=== PATIENT | male | born 1985 | race Caucasian/White ===

== ENCOUNTER 2023-12-13 12:36 | Emergency (ER) | payer SELFPAY ==
[~2023-12-13] VITALS: Ht 167.6 cm; Wt 86.0 kg
[2023-12-13 12:59] VITALS: O2SAT 99
[2023-12-13 13:49] LABS: BASOPHILS % 0.3 % (0.0-2.0); EOSINOPHILS % 0.7 % (0.0-5.0); HEMATOCRIT. 48.6 % (42.0-52.0); HEMOGLOBIN. 16.3 g/dL (14.0-18.0); LYMPHOCYTES % 18.5 % (20.0-50.0); MEAN CORPUSCULAR HEMOGLOBIN 28.2 pg (28.0-32.0); MEAN CORPUSCULAR HGB CONC 33.4 g/dL (31.0-37.0); MEAN CORPUSCULAR VOLUME 84.4 fL (80.0-94.0); MONOCYTES % 7.4 % (2.0-8.0); NEUTROPHILS % 73.1 % (40.0-76.0); PLATELET 267 x1000/uL (130-400); RED BLOOD CELL COUNT 5.76 mill/uL (4.7-6.1); RED CELL DISTRIBUTION WIDTH 13.7 % (11.6-14.6); WHITE BLOOD COUNT 13.9 x1000/uL (4.5-11.0)
[2023-12-13 13:52] LABS: CHLORIDE 103 mEq/L (98-107); POTASSIUM 3.8 mEq/L (3.5-5.1); SODIUM 140 mEq/L (136-145)
[2023-12-13 13:53] LABS: CALCIUM 9.7 mg/dL (8.7-10.4); CARBON DIOXIDE 28 mEq/L (21-32)
[2023-12-13 13:58] LABS: CREATININE 0.9 mg/dL (0.6-1.3); GLUCOSE 102 mg/dL (70-105); UREA NITROGEN BLOOD 9 mg/dL (9-23)
[2023-12-13 14:07] LABS: ETHANOL BLOOD < 10 mg/dL (<10); VALPROIC ACID < 3.0 ug/mL (50-100)
[2023-12-13] MEDS ORDERED: LEVE1000 MT (15:51)
[2023-12-13] MEDS ORDERED: DIVA500T3 MT (15:51)
[2023-12-13 16:31] VITALS: BP 146/89; PULSE 76; RESP 12; TEMP 37.05852; O2SAT 100
== END 2023-12-13 16:32 | disposition home or self-care (01) ==
LOC: ER 12:36
DX: R56.9 Unspecified convulsions (principal); F12.90 Cannabis use, unspecified, uncomplicated
CPT/HCPCS: 80048; 80320; 80165; 85025; 36415; 93005; 99285; Z7610; G0480

== ENCOUNTER 2023-12-17 08:51 | Emergency (ER) | payer SELFPAY ==
[~2023-12-17] VITALS: Ht 177.8 cm; Wt 73.0 kg
[~2023-12-17 08:51] MED LIST: DIVA500T3 MT; LEVE1000 MT
[2023-12-17 08:53] VITALS: O2SAT 97
[2023-12-17] MEDS: LEVETIRACETAM 1000MG PREMIX 100 ML IV ONE (09:20)
[2023-12-17] MEDS: SODIUM CHLORIDE 0.9% 1,000 ML IV ONE (09:20)
[2023-12-17 09:37] LABS: BASOPHILS % 0.4 % (0.0-2.0); EOSINOPHILS % 2.9 % (0.0-5.0); HEMATOCRIT. 47.7 % (42.0-52.0); HEMOGLOBIN. 16.3 g/dL (14.0-18.0); LYMPHOCYTES % 40.4 % (20.0-50.0); MEAN CORPUSCULAR HEMOGLOBIN 29.4 pg (28.0-32.0); MEAN CORPUSCULAR HGB CONC 34.2 g/dL (31.0-37.0); MEAN CORPUSCULAR VOLUME 85.9 fL (80.0-94.0); MONOCYTES % 8.7 % (2.0-8.0); NEUTROPHILS % 47.6 % (40.0-76.0); PLATELET 262 x1000/uL (130-400); RED BLOOD CELL COUNT 5.55 mill/uL (4.7-6.1); RED CELL DISTRIBUTION WIDTH 13.4 % (11.6-14.6); WHITE BLOOD COUNT 7.9 x1000/uL (4.5-11.0)
[2023-12-17] MEDS: IBUPROFEN 400MG TABLET PO ONE (09:39)
[2023-12-17 09:42] VITALS: TEMP 36.55848
[2023-12-17 09:48] LABS: CHLORIDE 106 mEq/L (98-107); POTASSIUM 4.1 mEq/L (3.5-5.1); SODIUM 139 mEq/L (136-145)
[2023-12-17 09:49] LABS: CALCIUM 9.9 mg/dL (8.7-10.4); CARBON DIOXIDE 23 mEq/L (21-32)
[2023-12-17 09:54] LABS: GLUCOSE 116 mg/dL (70-105); UREA NITROGEN BLOOD 12 mg/dL (9-23)
[2023-12-17 09:59] LABS: ETHANOL BLOOD < 10 mg/dL (<10)
[2023-12-17 10:00] LABS: VALPROIC ACID < 3.0 ug/mL (50-100)
[2023-12-17] MEDS: DIVALPROEX SODIUM 500MG DR TABLET PO ONE (11:46)
[2023-12-17 11:59] VITALS: BP 155/114; PULSE 84; RESP 22; O2SAT 99
== END 2023-12-17 12:09 | disposition home or self-care (01) ==
LOC: ER 08:51
DX: G40.909 Epilepsy, unspecified, not intractable, without status epilepticus (principal); I10 Essential (primary) hypertension; F12.10 Cannabis abuse, uncomplicated; R51.9 Headache, unspecified; Z91.148 Patient's other noncompliance with medication regimen for other reason
CPT/HCPCS: 80048; 80320; 80165; 85025; 36415; 96365; 99284; J1953; J7030; G0480

== ENCOUNTER 2024-01-28 11:06 | Emergency (ER) | payer SELFPAY ==
[~2024-01-28] VITALS: Ht 177.8 cm; Wt 100.0 kg
[2024-01-28 11:09] VITALS: O2SAT 96
[2024-01-28] MEDS: DIVALPROEX SODIUM 500MG DR TABLET PO STA (12:44)
[2024-01-28] MEDS: LEVETIRACETAM 1000MG PREMIX 100 ML IV ONE (12:44)
[2024-01-28 12:57] LABS: BASOPHILS % 0.4 % (0.0-2.0); EOSINOPHILS % 2.2 % (0.0-5.0); HEMATOCRIT. 47.6 % (42.0-52.0); HEMOGLOBIN. 16.3 g/dL (14.0-18.0); LYMPHOCYTES % 26.7 % (20.0-50.0); MEAN CORPUSCULAR HEMOGLOBIN 29.1 pg (28.0-32.0); MEAN CORPUSCULAR HGB CONC 34.2 g/dL (31.0-37.0); MEAN CORPUSCULAR VOLUME 84.9 fL (80.0-94.0); MEAN PLATELET VOLUME 8.1 fl (7.4-10.4); MONOCYTES % 8.5 % (2.0-8.0); NEUTROPHILS % 62.2 % (40.0-76.0); PLATELET 230 x1000/uL (130-400); RED BLOOD CELL COUNT 5.61 mill/uL (4.7-6.1); RED CELL DISTRIBUTION WIDTH 13.4 % (11.6-14.6); WHITE BLOOD COUNT 7.4 x1000/uL (4.5-11.0)
[2024-01-28 13:00] LABS: CHLORIDE 108 mEq/L (98-107); POTASSIUM 4.1 mEq/L (3.5-5.1); SODIUM 141 mEq/L (136-145)
[2024-01-28 13:01] LABS: CALCIUM 9.5 mg/dL (8.7-10.4); CARBON DIOXIDE 26 mEq/L (21-32)
[2024-01-28 13:06] LABS: CREATININE 0.8 mg/dL (0.6-1.3); GLUCOSE 93 mg/dL (70-105); UREA NITROGEN BLOOD 12 mg/dL (9-23)
[2024-01-28 13:18] LABS: ETHANOL BLOOD < 10 mg/dL (<10)
[2024-01-28 13:22] LABS: CLARITY URINE CLEAR (CLEAR); COLOR URINE YELLOW (YELLOW); GLUCOSE URINE NEGATIVE (NEGATIVE); KETONES URINE NEGATIVE (NEGATIVE); LEUKOCYTE ESTERASE URINE NEGATIVE (NEGATIVE); NITRITE URINE NEGATIVE (NEGATIVE); OCCULT BLOOD URINE NEGATIVE (NEGATIVE); PH URINE 5.5 (4.5-8.0); PROTEIN URINE 1+ (NEGATIVE); SPECIFIC GRAVITY URINE 1.022 (1.005-1.030); UROBILINOGEN URINE 0.2 E.U./dL (0.2-1.0)
[2024-01-28 13:37] LABS: BACTERIA URINE FEW; RBC URINE NONE SEEN /hpf (0-2); SQUAMOUS EPITHELIAL CELL URINE NONE SEEN /lpf (RARE/1+); WBC URINE 0-2 /hpf (0-2); YEAST URINE NONE SEEN
[2024-01-28 13:38] LABS: *AMPHETAMINES SCREEN URINE NEGATIVE (NEGATIVE); *BARBITURATES SCREEN URINE NEGATIVE (NEGATIVE); *BENZODIAZEPINES SCREEN URINE NEGATIVE (NEGATIVE); *COCAINE SCREEN URINE NEGATIVE (NEGATIVE); CANNABINOID URINE SCREEN NEGATIVE (NEGATIVE); ECSTASY MDMA SCREEN URINE NEGATIVE (NEGATIVE); METHADONE URINE SCREEN NEGATIVE (NEGATIVE); OPIATES URINE SCREEN NEGATIVE (NEGATIVE); PHENCYCLIDINE URINE SCREEN NEGATIVE (NEGATIVE)
[2024-01-28] MEDS ORDERED: DIVA500T3 MT (14:35)
[2024-01-28] MEDS ORDERED: LEVE1000 MT (14:35)
[2024-01-28 14:39] VITALS: BP 146/94; PULSE 89; RESP 20; TEMP 37.05852; O2SAT 96
== END 2024-01-28 14:45 | disposition home or self-care (01) ==
LOC: ER 11:12
DX: G40.909 Epilepsy, unspecified, not intractable, without status epilepticus (principal); F12.10 Cannabis abuse, uncomplicated
CPT/HCPCS: 80305; 80048; 81003; 80320; 85025; 36415; 96365; 99284; J1953; Z7610; G0480